=== PATIENT | male | born 1965 | race Caucasian/White ===

== ENCOUNTER 2016-06-14 06:53 | Observation (INO) | payer BC ==
[~2016-06-14] VITALS: Ht 180.3 cm; Wt 113.0 kg
[2016-06-14] VITALS (26 sets, daily range): BP systolic 122–155; BP diastolic 85–112; PULSE 60–75; TEMP 36.5–36.7; O2SAT 94–100; Ht 180.3 cm; Wt 113.0 kg
[~2016-06-14 06:53] MED LIST: ALLO100T PO; ASPI-435 PO; BIOT1CAP8 PO; CALC500T83 PO; CHOL1000 PO; CYAN10005 PO; FRS/40 PO; IMIQ1CRE5; LISI-461 PO; METO25TA3 PO; NITR0.4S UT; PRLSR20 PO; SIMV40TA2 PO; ZINC50TA36 PO; acetaminophen PO
--- NOTE | 2016-06-14 08:09 | DIAGNOSTIC IMAGING REPORT ---
ULTRASOUND RIGHT VENOUS DOPP LOWER EXT UNILAT CLINICAL HISTORY: Right leg redness and swelling COMPARISON STUDY: No previous studies for comparison. FINDINGS: Real-time and color flow Doppler imaging were performed. Flow was seen within the femoral, popliteal and calf veins with no intraluminal thrombus demonstrated. The saphenous vein is patent. IMPRESSION: No evidence of right lower extremity DVT. Electronically signed by: Paco Butcher M.D. 06/14/2016 8:07 AM Dictated Date/Time: 06/14/2016 8:07 AM
[2016-06-14] MEDS ORDERED: FENTANYL CITRATE INJ 50 MCG/1 ML 2 ML VIAL ONE (08:19)
[2016-06-14] MEDS ORDERED: NiCARDipine HCL INJ 2.5 MG/ML 10 ML AMP ONE (08:19)
[2016-06-14] MEDS ORDERED: HEPARIN SOD (PORCINE) 1000 UNIT/ML 10 ML VIAL ONE ×2 (08:19→09:56)
[2016-06-14] MEDS ORDERED: NITROGLYCERIN/D5W 100MCG/ML 20ML SYR ONE (08:20)
[2016-06-14] MEDS ORDERED: MIDAZOLAM HCL 1 MG/ML 2ML VIAL ONE (08:20)
--- NOTE | 2016-06-14 09:27 | Procedure Note ---
Pre-Mod Sedation Assessment General Date of Moderate Sedation: Jun 14, 2016. Vital Signs: Vital Signs Past 12 Hours Date Time Temp Pulse Resp B/P Pulse Ox O2 Delivery O2 Flow Rate FiO2 06/14/16 07:07 36.5 75 18 139/87 95 Room Air Review Cardiovascular: regular rate, rhythm, no edema, no gallop, no JVD, no murmur, + pertinent finding (2+ RLE pedal and pretibial edema) Abdomen: non tender Lungs: lungs clear, normal breath sounds Pre-Sedation Airway Assessment Oral Cavity: Dentures Short Thick Neck: No Hx of Sleep Apnea: No Smoking Status: Never Smoker Mallampati Classification: Class III ASA Classification: Class III Procedure Planning Contraindications-for Mod Sed: None Yes Notes The planned sedation has been discussed with the patient and consent obtained. I have identified the patient, determined the appropriateness of sedation and have assessed the patient immediately prior to the procedure. All medicine(s) and interventions are by my order.
--- NOTE | 2016-06-14 09:51 | Cardiac Catheterization ---
Procedure Note Procedure Date Jun 14, 2016. Pre-Procedure Diagnosis Angina, Positive Stress Test, CAD AUC Score 8 Post-Procedure Diagnosis Severe CAD Procedure(s) Performed Coronary Angiography, Left Heart Cath, LV Angiography Well Shooter Dr. Luciano House Painter(s) Ganga RAINEYIS Estimated Blood Loss 5cc Medication(s) Fentanyl, Heparin, Nicardipine, Nitroglycerin, Versed, Lidocaine 1% Summary of Findings ESTIMATING ENGINEER mid LAD with right to left collaterals. Hemodynamics Rest Ao: 116/82/98 Final Ao: 113//73/92 LV: 114/7/16 Recommendations PCI without planned CABG Specimens None Radiation Exposure (mGy) 733 Contrast (mls) 95 Procedural Complication(s) None Disposition Patient remained in collaborative physician for ACC Data Cardiac Status Clinical evaluation leading to the procedure CAD Presntation: Stable angina, Positive Stress Test Anginal Classification: CCS II Heart Failure: No Cardiogenic Shock w/in 24Hrs: No Cardiac Arrest w/in 24Hrs: No Imaging studies past 6 months: Yes Stress Echocardiogram: Risk/Extent of Ischemia (Intermediate) Cardiac CTA: No Coronary Anatomy Dominant: Right Left Main (% Stenosis): Normal LAD (% Stenosis): Ostial (0%), Proximal (0%), Mid (100%) D1 (% Stenosis): Ostial (0%), Proximal (patent proximal stent with 0%), Mid (0% ), Distal (0%) Circumflex (% Stenosis): Ostial (0%), Proximal (30%), Mid (40%), Distal (0%) OM1 (% Stenosis): Ostial (30%), Proximal (0%), Mid (0%), Distal (0%) OM2 (% Stenosis): Ostial (large vessel), Normal L PL1 (% Stenosis): Ostial (Large vessel), Normal RCA (% Stenosis): Normal (with right to left collaterals) R PDA (% Stenosis): Normal R PL1 (% Stenosis): Normal AM (% Stenosis): Normal Left Ventricular Angiography EF (%): 65% with normal wall motion Mitral Regurgitation: None Diagnostic Status: Elective Closure Device Percutaneous Entry Location: Radial Closure Device: Radial Band Recommendations: PCI without planned CABG Intraprocedure Events Significant Dissection: No Perforation: No
[2016-06-14] MEDS ORDERED: CLOPIDOGREL BISULFATE 300 MG TAB PO ONE (10:20)
[2016-06-14] MEDS ORDERED: SODIUM CHLORIDE 0.9% 1000ML 250 ML IV PRN (11:48)
[2016-06-14] MEDS ORDERED: ACETAMINOPHEN 500 MG PO PRN (12:00)
[2016-06-14] MEDS ORDERED: ACETAMINOPHEN 325 MG TAB PO PRN (12:00)
[2016-06-14] MEDS ORDERED: ONDANSETRON INJ 2 MG/ML 2 ML VIAL IV PRN (12:00)
[2016-06-14] MEDS ORDERED: NITROGLYCERIN 0.4 MG SL PER TAB CHARGE UT PRN (12:00)
[2016-06-14] MEDS ORDERED: IV FLUIDS COMPLETED PRN (12:15)
[2016-06-14] MEDS: ALLOPURINOL 100 MG TAB PO SCH ×2 (12:51→20:58)
[2016-06-14] MEDS: CYANOCOBALAMIN 500 MCG TAB (VIT B-12) PO SCH (12:51)
[2016-06-14] MEDS: LISINOPRIL 10 MG TAB PO SCH (12:52)
[2016-06-14] MEDS: METOPROLOL SUCC 25MG EXT REL TAB PO SCH (12:52)
[2016-06-14] MEDS: CALCIUM CARBONATE 500 MG CHEWABLE PO SCH ×2 (12:53→20:58)
[2016-06-14] MEDS: PANTOprazole SOD 40 MG TAB PO SCH (12:54)
[2016-06-14] MEDS ORDERED: SIMVASTATIN 40 MG TAB PO SCH (21:00)
[2016-06-14] MEDS ORDERED: ASPIRIN 81 MG ECTAB PO SCH (21:00)
[2016-06-15] VITALS: BP 107/81; PULSE 62; TEMP 36.6; O2SAT 97
--- NOTE | 2016-06-15 00:09 | Cardiac Catheterization ---
Procedure Note Procedure Date Jun 14, 2016. Pre-Procedure Diagnosis Angina, Positive Stress Test AUC Score 7 Post-Procedure Diagnosis Severe CAD, Successful PCI Procedure(s) Performed Drug Eluting Stent Rail Project Engineer Dr. Rossi Utility Tender Carding(s) Soledad Estimated Blood Loss 25 Medication(s) Clopidogrel, Fentanyl, Heparin, Versed Summary of Findings Indication: Progressive angina, prior positive stress Access: 6Fr Right radial artery Catheters: EBU 3.5 Findings: Full details of patients coronary anatomy see details from Cath report by Dr. Luciano from 06/14/2016. Briefly, 100% occluded mid LAD. Well defined proximal cap, short segment of occlusion, with large distal vessel without significant disease. Lesion appeared amenable to SCAFFOLD BUILDER-PCI Arterial Closure: TR Band PCI: Antithrombotic therapy: Heparin to ACT >250 Procedure: With the use of an over the wire 2.0 x 8 compliant balloon for support, long whisper wire used to engage proximal cap of SCAFFOLD BUILDER Whisper wire passed without significant difficulty via microchannel to distal vessel. Over the wire balloon passed past occlusion and distal intracoronary position confirmed with contrast injection through balloon catheter SCAFFOLD BUILDER predilated with 2.0, then 3.0 balloon Lesion stented with 3.[address] Stent post-dilated with 3.75 NC TREK balloon Post procedure minimal residual stenosis, stent well-expanded and JEANETTE 3 flow. Summary: 1. 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 Luciano Hemodynamics Rest Ao: 107/69/89 Final Ao: 137/85/108 LV: - Recommendations PCI without planned CABG Specimens None Radiation Exposure (mGy) 2639 Contrast (mls) 230 Drains none Anesthesia moderate Procedural Complication(s) None Disposition [facility]U [facility] Data Cardiac Status Clinical evaluation leading to the procedure CAD Presntation: Stable angina, Positive Stress Test Anginal Classification: CCS IV Heart Failure: No Cardiogenic Shock w/in 24Hrs: No Cardiac Arrest w/in 24Hrs: No Imaging studies past 6 months: No Standard Exercise Stress Test: No Stress Echocardiogram: No Stress Testing w/SPECT MPI: No Cardiac CTA: No Coronary Anatomy Dominant: Right LAD (% Stenosis): Proximal (100) Diagnostic Physician's Name: Carlos Rossi MD Status: Elective Closure Device Percutaneous Entry Location: Radial Recommendations: PCI without planned CABG Lesion Segment Name: Proximal-mid LAD Culprit Artery: Yes Stenosis Prior to Rx (%): 100 Chronic Total Occlusion: Yes IVUS: No FFR: No Pre-Procedure JEANETTE Flow: 0 Previously Treated Lesion: No Lesion Complexity: High/C Lesion Length (mm): 15 Thrombus Present: No Bifurcation Lesion: No Guidewire Across Lesion: Yes Guidewire: Stenosis Post-Procedure (%): 0 Post-Procedure JEANETTE Flow: 3 Device(s) Deployed: Yes (Xience 3.5 x 23) Intraprocedure Events Significant Dissection: No Perforation: No
[2016-06-15 04:00] VITALS: BP 113/80; PULSE 63; TEMP 36.8; O2SAT 97; O2SAT 98
[2016-06-15 06:32] LABS: HEMATOCRIT 36.4 % (42-52); MEAN CELL VOLUME 78.4 fL (80-100); MEAN CORPUSCULAR HEMOGLOBIN 25.9 pg (25-34); MEAN PLATELET VOLUME 11.5 fL (7.4-10.4); PLATELET COUNT 173 K/uL (130-400); RED BLOOD COUNT 4.64 M/uL (4.7-6.1); WHITE BLOOD COUNT 6.51 K/uL (4.8-10.8)
[2016-06-15 06:55] LABS: BUN/CREATININE RATIO 11.7 (10-20); CALCIUM 8.6 mg/dl (8.5-10.1); CREATININE 1.3 mg/dl (0.60-1.40); POTASSIUM 3.9 mmol/L (3.5-5.1)
[2016-06-15 08:00] VITALS: BP 129/94; PULSE 86; TEMP 37.2; O2SAT 96
[2016-06-15] MEDS: PANTOprazole SOD 40 MG TAB PO SCH (08:09)
[2016-06-15] MEDS: METOPROLOL SUCC 25MG EXT REL TAB PO SCH (08:09)
[2016-06-15] MEDS: CALCIUM CARBONATE 500 MG CHEWABLE PO SCH (08:10)
[2016-06-15] MEDS: CYANOCOBALAMIN 500 MCG TAB (VIT B-12) PO SCH (08:10)
[2016-06-15] MEDS: ALLOPURINOL 100 MG TAB PO SCH (08:10)
[2016-06-15] MEDS: LISINOPRIL 10 MG TAB PO SCH (08:10)
--- NOTE | 2016-06-15 08:27 | Procedure Note ---
Post-Mod Sedation Assessment General Date of Moderate Sedation Jun 15, 2016. Vital Signs: Vital Signs Past 12 Hours Date Time Temp Pulse Resp B/P Pulse Ox O2 Delivery O2 Flow Rate FiO2 06/15/16 04:00 97 Room Air 06/15/16 04:00 36.8 63 16 113/80 98 Room Air 06/15/16 00:00 97 Room Air 06/15/16 00:00 36.6 62 17 107/81 97 Room Air Review - Discharge Criteria Vital Signs Stable: Yes Alert/Oriented/Conversant: Yes Returned to Baseline Mental St: Yes Nausea Absent/Minimal: Yes Pain/Discomfort/Absent/Minimal: Yes Normal/Baseline Respirations: Yes Active Bleeding?: No Pt Received D/C Instructions: N/A Specific Proced. D/C Criteria Distal Pulses Present (Cardiac: Yes Groin site assessed-Card Cath: N/A Voided Prior To Discharge: N/A Discharged Patients Adult Escort/Transportation: N/A
--- NOTE | 2016-06-15 08:39 | Cardiology Follow-Up ---
Subjective General Date of Service: Jun 15, 2016. Pt evaluation today including: conversation w/ patient, physical exam, chart review, lab review, review of studies, review of inpatient medication list History of Present Illness The patient is a 50 year old male seen in follow up. Feeling well today. Denies CP or SOB. No right wrist discomfort. Tolerating diet and mediations. Offers no complaints. Allergies Coded Allergies: No Known Allergies (Verified , 03/22/16) Social History Smoking Status: Former Smoker Hx Tobacco Use In Past Year?: No Hx Alcohol Use - Type And Amou: Yes (once a year ) Hx Substance Use - Type And Am: No Review of Systems Respiratory: No cough, No dyspnea at rest, No dyspnea on exertion, No hemoptysis, No shortness of breath, No sputum, No wheezing Cardiac: No PND, No chest pain, No claudication, No edema, No orthopnea, No palpitations Physical Exam Vital Signs Last Vital Signs Documentation Date Time Temp Pulse Resp B/P Pulse Ox O2 Delivery O2 Flow Rate FiO2 06/15/16 04:00 97 Room Air 06/15/16 04:00 36.8 63 16 113/80 Physical Exam Constitutional: General Apperance: heathly-appearing, well-nourished, overweight Level of Distress: NAD Ambulation: ambulating normally Head: normocephalic Neck: supple, trachea midline Lungs: Auscultation: breath sounds normal, no wheezing, no rales/crackles, no rhonchi Cardiovascular: Heart Auscultation: RRR, normal S1, normal S2, no murmurs, no rubs, no gallops Peripheral Pulses: Bruits: none appreciated Radial Pulse: normal on the right Abdomen: Bowel Sounds: normal Inspection & Palpation: soft, non-distended, no tenderness, guarding & rebound Extremities: no cyanosis, no edema, no clubbing, no ulcers Neurologic: Gait & Station: pertinent finding (No focal deficit) Cranial Nerves: grossly intact Assessment and Plan Assessment and Plan Imp: 1. Chronic total LAD occlusion s/p CT x 1 2. Preserved LV systolic function with normal wall motion per left ventriculogram 3. Dyslipidemia 4. HTN - controlled 5. Former tobacco Plan/Recommendations: Transition simvastatin to atorvastatin 80mg daily. Continue plavix for a minimum of one year post- PCI and aspirin lifelong. Other cardiovascular medications will be continued as previously ordered. Post catheterization activity restrictions reviewed. Discharge today. I will see patient for routine follow up in 2-4 weeks. Laboratory Results Last 24 Hours Test 06/14/16 09:11 06/14/16 09:45 06/15/16 06:06 Kaolin Activated Coagulation Time 204 SECONDS 198 SECONDS White Blood Count 6.51 K/uL Red Blood Count 4.64 M/uL Hemoglobin 12.0 g/dL Hematocrit 36.4 % Mean Corpuscular Volume 78.4 fL Mean Corpuscular Hemoglobin 25.9 pg Mean Corpuscular Hemoglobin Concent 33.0 g/dl RDW Standard Deviation 39.9 fL RDW Coefficient of Variation 14.0 % Platelet Count 173 K/uL Mean Platelet Volume 11.5 fL Sodium Level 138 mmol/L Potassium Level 3.9 mmol/L Chloride Level 103 mmol/L Carbon Dioxide Level 24 mmol/L Anion Gap 11.0 mmol/L Blood Urea Nitrogen 15 mg/dl Creatinine 1.30 mg/dl Est Creatinine Clear Calc Drug Dose 85.9 ml/min Estimated GFR () 73.2 Estimated GFR (Non- 63.2 BUN/Creatinine Ratio 11.7 Random Glucose 119 mg/dl Calcium Level 8.6 mg/dl
[2016-06-15] MEDS ORDERED: PLV75 PO (08:51)
[2016-06-15] MEDS ORDERED: LPT40 PO (08:51)
--- NOTE | 2016-06-15 08:53 | Discharge Instructions ---
Discharge Instructions Procedure Procedure Date: Jun 15, 2016. Reason for Visit: Angina; Cad ; Kopinski To Do. Discharge Discharge Date: Jun 15, 2016. Discharge Diagnosis: LAD occlusion s/p drug eluting stent implantation Last Recorded Wt (Kilograms): 113.000 Anesthesia Post Anesthesia Instructions: If you have had General Anesthesia or IV Sedation: * Do not drive today. * Resume driving when surgeon permits. * Do not make important decisions or sign legal documents today. * Call surgeon for: 1. Temperature elevations greater than 101 degrees F. 2. Uncontrollable pain. 3. Excessive bleeding. 4. Persistent nausea and vomiting. 5. Medication intolerance (nausea, vomiting or rash). * For nausea and vomiting use only clear liquids such as: tea, soda, bouillon until nausea subsides, then gradually increase diet as tolerated. * If you have any concerns or questions, call your surgeon's office. If physician is unavailable and it is an emergency, call 911 or go to the nearest emergency room. Instructions Activity Recommendations: limitations as noted below Return to School/Work: with the following limitations Recommended Home Diet: low cholesterol Allergies: Coded Allergies: No Known Allergies (Verified , 03/22/16) Provider Instructions ACTIVITY RECOMMENDATIONS: It is common to feel weak and fatigue for a few days. * Do not drive or operate any motorized equipment for the next three days. * Limit stair usage (2 or 3 trips a day only) for the next three days. * Do not lift anything heavier than 10 pounds for the next three days. * Do not engage in vigorous exercise or any sports for the next five days. * You may shower the day after your procedure, but do not immerse the area for three days. Cleanse the site gently with soap and water. SPECIAL CARE INSTRUCTIONS: * You may replace the pressure dressing or band-aid the morning after the procedure. * After your procedure, it is normal to have a small bruise or small lump at the site. Examine your site daily for any change in the bruise or lump, redness, swelling, drainage or numbness. Notify your doctor if any change. BLEEDING: * If there is a small amount of bleeding at the site, lie down and apply firm pressure with a clean cloth for ten minutes. When the bleeding stops, lie quietly keeping the procedure limb straight for six hours. Notify your doctor as soon as possible. * If the bleeding does not stop after ten minutes or if there is a large amount of bleeding or spurting, call 911 immediately. Continue to lie down and hold firm pressure until help arrives. SKIN IRRITATION: * You may experience some redness and/or swelling in the area where radiation was administered. If any skin irritation occurs, please contact your family physician. FOLLOW UP VISIT: Keep any scheduled doctor appointments. Follow Up Follow-up with: Dr. Luciano in 2-4 weeks[address] [facility] Recommendations: Call your doctor if: * Temperature above 101 degrees * Pain not relieved by pain medicine ordered * There is increased drainage or redness from any incision * You have any unanswered questions or concerns. Your Doctors Instructions noted above were prepared by provider Js Luciano. Patient Signature Section: Patient Instructions Signature Page Pasha Brooks Patient (or Guardian) Signature/Date: I have read and understand the instructions given to me by my caregivers. Caregiver/RN/Doctor Signature/Date: The above-named patient and/or guardian has received patient instructions on this date. + Original Patient Signature Page (only) stays with chart. Please make copy for patient.
[2016-06-15] MEDS ORDERED: CLOPIDOGREL BISULFATE 75 MG TAB PO SCH (09:00)
[2016-06-15] MEDS ORDERED: NON-FORMULARY MEDICATION (Biotin 1 MG) PO SCH (09:00)
[2016-06-15] MEDS ORDERED: ZINC PO SCH (09:00)
[2016-06-15] MEDS ORDERED: FUROSEMIDE 40 MG TAB PO SCH (09:00)
[2016-06-15 09:22] VITALS: BP 129/94; PULSE 86; TEMP 37.2; O2SAT 96
[2016-06-15] MEDS ORDERED: ATORVASTATIN 40 MG TAB PO SCH (10:00)
--- NOTE | 2016-06-15 11:50 | DISCHARGE SUMMARY ---
ATTENDING PHYSICIAN: Dr. Js Luciano. ADMITTING DIAGNOSES: 1. Chronic lower extremity edema secondary to venous insufficiency. 2. Progressive exertional angina. 3. Coronary artery disease. 4. Dyslipidemia. 5. Former tobacco abuse. 6. Hypertension. DISCHARGE DIAGNOSES: 1. Coronary artery disease with chronic total occlusion of the mid left anterior descending artery status post drug-eluting stent implantation. 2. Dyslipidemia. 4. Hypertension. 5. Former tobacco abuse. 6. Chronic lower extremity edema secondary to venous insufficiency. ADMISSION MEDICATIONS: 1. Lisinopril 10 mg daily. 2. Zyloprim 100 mg daily. 3. Lasix 40 mg every other day. 4. Cyanocobalamin 2500 mcg daily. 5. Prilosec 20 mg daily. 6. Aldara 5% cream at night. 7. Zocor 40 mg daily. 8. Toprol-XL 25 mg daily. 9. Sublingual nitroglycerin as needed. 10. Zinc 50 mg daily. 11. Tylenol as needed. 12. Aspirin 81 mg daily. DISCHARGE MEDICATIONS: 1. Aspirin 81 mg daily. 2. Plavix 75 mg daily. 3. Atorvastatin 80 mg daily. 4. Zyloprim 100 mg twice daily. 5. Lisinopril 10 mg daily. 6. Furosemide 40 mg every other day. 7. Toprol-XL 25 mg daily. 8. Sublingual nitroglycerin as needed. 9. Tylenol as needed. 10. Omeprazole daily. HOSPITAL COURSE: The patient was brought to hospital on 06/14/2016 for elective cardiac catheterization due to progressive exertional angina and abnormal exercise stress echo suggesting apical and septal ischemia. The cardiac catheterization revealed a total occlusion of the mid LAD. The occlusion appeared to be chronic. Interventional cardiology was consulted. Based on angiography, interventional cardiology felt this chronic total occlusion had a high probability of successful PCI. The baseline wall motion was normal. The distal vessel revealed no significant obstructive disease. A drug-eluting stent was implanted 06/14/[address] Rossi without complications. The procedure was performed via radial access. The patient was admitted for observation overnight. No dysrhythmias on telemetry. Tolerating medications. He was discharged 06/15/2016 in stable condition. Plan for outpatient cardiology follow up in 2-4 weeks. This concludes the discharge summary.
== END 2016-06-15 10:00 | disposition home or self-care (01) ==
LOC: C.CATH 06:53 → C.MSICU 11:46
PROVIDERS: ADMIT Internal Medicine Cardiovascular Disease; ATTEND Internal Medicine Cardiovascular Disease
DX: I25.119 Atherosclerotic heart disease of native coronary artery with unspecified angina pectoris (principal); I25.82 Chronic total occlusion of coronary artery; E78.5 Hyperlipidemia, unspecified; I10 Essential (primary) hypertension; E11.9 Type 2 diabetes mellitus without complications; I87.2 Venous insufficiency (chronic) (peripheral); N52.9 Male erectile dysfunction, unspecified; G47.33 Obstructive sleep apnea (adult) (pediatric); I25.2 Old myocardial infarction; Z87.442 Personal history of urinary calculi; Z98.84 Bariatric surgery status; Z79.82 Long term (current) use of aspirin; Z87.891 Personal history of nicotine dependence